=== PATIENT | female | born 1990 | race Caucasian/White ===

== ENCOUNTER 2017-09-06 21:10 | Emergency (ER) | payer OTHER ==
[~2017-09-06] VITALS: Ht 167.6 cm; Wt 68.0 kg
[~2017-09-06 21:10] MED LIST: BACTRIM DS TAB1 EACH PO; CIPROFLOXIN HC2.5 M1 OPHTHALMIC; DERMOPLAST SPRA56 ML; HYDROCORTISONE30 G9 RECTAL; IBUPROFEN 600600 M1 PO; KEFLEX250 M1; KEFLEX500 M1 PO; LANOLIN56 GM; MACROBID 100 M100 M1 PO; NAPHCON-A EYE D15 ML OP; NORCO 5-325 TA1 EACH PO; TOBRAMYCIN SULFA5 ML IO; TRINATE TABLET1 TAB PO; TUCKS MEDICATE1 EAC1 TOP
[2017-09-06] MEDS ORDERED: DEPO-PROVE150 MG/11 (21:32)
[2017-09-06 21:45] LABS: URINE BILIRUBIN NEGATIVE (Negative); URINE BLOOD NEGATIVE (Negative); URINE CLARITY CLEAR; URINE COLOR YELLOW; URINE GLUCOSE-RANDOM* NEGATIVE (Negative); URINE KETONES NEGATIVE (Negative); URINE LEUKOCYTES-REFLEX NEGATIVE (Negative); URINE PROTEIN (DIPSTICK) NEGATIVE (Negative)
[2017-09-06 21:54] LABS: URINE NITRITE-REFLEX POSITIVE (Negative)
[2017-09-06 21:57] LABS: CASTS None Seen /LPF (None Seen); MUCUS None Seen strn/LPF (None Seen); SQUAMOUS 0-3 Few /LPF (0-3); URINE RBC 0-2 Rare /HPF (0-2); URINE WBC-REFLEX None Seen /HPF (0-5)
[2017-09-06 21:58] LABS: CRYSTALS None Seen /LPF (None Seen)
[2017-09-06] MEDS ORDERED: MIRALAX17 GM PO (22:23)
[2017-09-06] MEDS ORDERED: KEFLEX500 M1 PO (22:23)
[2017-09-06 22:56] VITALS: BP 109/72
[2017-09-08 14:07] LABS: NEISSERIA GONORRHEA-PCR Negative (Negative)
== END 2017-09-06 21:50 | disposition home or self-care (01) ==
LOC: ER 21:10
PROVIDERS: Emergency Medicine
DX: N39.0 Urinary tract infection, site not specified (principal); K59.00 Constipation, unspecified; F17.210 Nicotine dependence, cigarettes, uncomplicated; Z91.040 Latex allergy status

== ENCOUNTER 2018-12-11 19:23 | Emergency (ER) | payer OTHER ==
[~2018-12-11] VITALS: Ht 170.2 cm; Wt 59.0 kg
[~2018-12-11 19:23] MED LIST changes: +DEPO-PROVE150 MG/11; +MIRALAX17 GM PO; +NAPROSYN500 MG PO; +NOHOMEMEDICATIONS
[2018-12-11] MEDS ORDERED: PRENATAL (19:58)
[2018-12-11 20:41] LABS: ABSOLUTE NEUTROPHILS 5.3 thou/uL (1.4-8.2); BASOPHILS 0.4 % (0.0-2.0); EOSINOPHILS 2.3 % (0.0-3.0); HEMATOCRIT 32.3 % (37.0-47.0); HEMOGLOBIN 11.4 gm/dL (12.0-15.0); MCHC 35.2 g/dL (28.0-37.0); MCV 93.8 fL (80.0-100.0); MONOCYTES 6.3 % (1.0-8.0); PLATELET COUNT 206 thou/uL (150-400); RBC 3.45 mil/uL (4.20-5.00); RDW 13.5 % (10.5-14.5); WBC 7.7 thou/uL (4.0-11.0)
[2018-12-11 20:46] LABS: CALCIUM 8.3 mg/dL (8.5-10.1); CREATININE 0.5 mg/dL (0.6-1.0); POTASSIUM 3.5 mmol/L (3.5-5.1)
[2018-12-11 20:47] LABS: MAGNESIUM 1.8 mg/dL (1.8-2.4)
[2018-12-11 22:06] LABS: URINE BILIRUBIN NEGATIVE (Negative); URINE BLOOD NEGATIVE (Negative); URINE CLARITY SL CLOUDY; URINE COLOR YELLOW; URINE GLUCOSE-RANDOM* NEGATIVE (Negative); URINE KETONES NEGATIVE (Negative); URINE PROTEIN (DIPSTICK) NEGATIVE (Negative); URINE SPECIFIC GRAVITY 1.015 (1.005-1.035); URINE UROBILINOGEN 0.2 E.U./dl (0.2-1.0)
[2018-12-11 22:09] LABS: URINE LEUKOCYTES-REFLEX 2+ (Negative); URINE NITRITE-REFLEX POSITIVE (Negative)
[2018-12-11 22:12] LABS: CASTS None Seen /LPF (None Seen); MUCUS 0-3 Light strn/LPF (None Seen); SQUAMOUS 0-3 Few /LPF (0-3)
[2018-12-11 22:13] LABS: BACTERIA-REFLEX >30 Many /HPF (None Seen); CRYSTALS None Seen /LPF (None Seen); URINE RBC 0-2 Rare /HPF (0-2); URINE WBC-REFLEX 0-5 Rare /HPF (0-5)
[2018-12-11] MEDS ORDERED: MACROBID 100 M100 M1 PO (22:30)
[2018-12-11 22:45] VITALS: BP 94/54
== END 2018-12-11 22:48 | disposition home or self-care (01) ==
LOC: ER 19:23
PROVIDERS: Emergency Medicine
DX: O26.892 Other specified pregnancy related conditions, second trimester (principal); R10.30 Lower abdominal pain, unspecified; F17.210 Nicotine dependence, cigarettes, uncomplicated; Z91.040 Latex allergy status